=== PATIENT | male | born 1970 | race Caucasian/White ===

== ENCOUNTER 2021-08-20 06:32 | Day surgery (SDC) | payer OTHER ==
[~2021-08-20 06:32] MED LIST: METAMUCIL197.2 GM PO; MIRALAX119 GM PO; NORCO 5-325 TA1 EACH PO
--- NOTE | 2021-08-20 07:52 | NUR ---
08/20/21 Martha Reed 3397 PT ARRIVED TO PACU ON 2L VIA NC. VSS. PT ASLEEP RESP EVEN AND UNLABORED.
--- NOTE | 2021-08-20 08:26 | NUR ---
PT IS ALERT,ORIENTED AND SUPPORTED BY HIS JACKIE. PT IS HERE FOR HIS FIRST SCOPE. ALL QUESTIONS ASKED ANSWERED. JACKIE WILL REMAIN FOR DC. PT REQUESTED PRAYER, WILL FOLLOW NEEDED
--- NOTE | 2021-08-20 08:30 | OR ---
[facility] [address], [place] [address] Signed DATE OF OPERATION: 08/20/2021 SURGEON: John August MD PREOPERATIVE DIAGNOSES: 1. Screening. 2. Mother with history of colonic polyps. POSTOPERATIVE DIAGNOSIS: Mild right and left-sided diverticulosis. PROCEDURE: Colonoscopy biopsy. ESTIMATED BLOOD LOSS: None. INDICATIONS: Jaime is a 50-year-old gentleman, asked to see me for his initial screening colonoscopy. He explained that his mother has had colonic polyps removed. She has to go every 3 to 5 years. He currently has no lower GI complaints. This would represent his 1st colonoscopy. In the office, I gave him a pamphlet on colonoscopy. He understands the nature of the test. There is risk including, but not limited to gas bloating, crampy abdominal pain, bleeding, perforation requiring surgery, and missed diagnosis. We also discussed the need for IV conscious sedation. He had expressed understanding and wished to proceed. PROCEDURE NOTE: Jaime was taken into our endoscopy suite and placed in the left lateral decubitus position. He was given a total of 5 mg of Versed and 100 mcg of fentanyl to cover the case. A digital rectal exam was performed and he has good sphincter tone. No external hemorrhoids. No masses. Prostate is mildly enlarged and [id number] indurated. The adult colonoscope was introduced and advanced all around into the cecum under direct visualization of the camera without difficulty. His prep was quite excellent. We could easily see his appendiceal orifice and ileocecal valve. The scope was then slowly withdrawn. We took several pictures throughout for photodocumentation. We realized that he had several diverticula in his right and left colon. They are minimal to moderate in size, few in number, and scattered about. There were no polyps. The rectum was unremarkable. Upon retroflexion of the scope, there was no additional pathology noted above the anal canal. After this, the gas was suctioned out and the colonoscope Electronically Signed By: JOHN AUGUST MD 08/20/21 0830 PATIENT NAME: JAIME GOMEZ OPERATIVE REPORT DATE OF : 68 REPORT #: [id number] PHYSICIAN: JOHN AUGUST MD PCP: IFRAH MYERS MD REPORT IS CONFIDENTIAL AND NOT TO BE RELEASED WITHOUT AUTHORIZATION [address] [address] Signed removed. Jaime tolerated the procedure quite well. RECOMMENDATIONS: Jaime should follow up in every five years if indeed his mother has had multiple colonic polyps removed as above. John August MD ALB/MODL /[id number] cc: MD John Tao MD Copies: IFRAH MYERS MD, ANDREW L MD ~ Electronically Signed By: JOHN AUGUST MD 08/20/21 0830 PATIENT NAME: JAIME GOMEZ OPERATIVE REPORT DATE OF : 68 REPORT #: [id number] PHYSICIAN: JOHN AUGUST MD PCP: IFRAH MYERS MD REPORT IS CONFIDENTIAL AND NOT TO BE RELEASED WITHOUT AUTHORIZATION
== END 2021-08-20 08:30 | disposition home or self-care (01) ==
LOC: OPS 06:32 → DS 06:32 → OPS 07:30
PROVIDERS: ATTEND Colon & Rectal Surgery
PROC: 0DJD8ZZ Inspection of Lower Intestinal Tract, Via Natural or Artificial Opening Endoscopic (ICD-10-PCS; principal; 2021-08-20 07:30)
DX: Z12.11 Encounter for screening for malignant neoplasm of colon (principal); F10.99 Alcohol use, unspecified with unspecified alcohol-induced disorder; K21.9 Gastro-esophageal reflux disease without esophagitis; Z83.71 Family history of colonic polyps; K57.30 Diverticulosis of large intestine without perforation or abscess without bleeding; Z87.891 Personal history of nicotine dependence
CPT/HCPCS: J2250; J3010; J7121